=== PATIENT | female | born 1960 | race Caucasian/White ===

== ENCOUNTER 2017-12-10 10:51 | Emergency (ER) | payer BC ==
[2017-12-10 11:04] VITALS: BP 141/79
--- NOTE | 2017-12-10 12:27 | RAD ---
HISTORY: Inversion injury, pain at base of the fifth metatarsal COMPARISONS: None VIEWS: 3, Frontal, lateral, and oblique views of the left foot FINDINGS: BONE DENSITY: Normal. BONES: There is a nondisplaced fracture of the base of the fifth metatarsal with articular extension. 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 ALIGNMENT: There is no dislocation. SOFT TISSUES: Unremarkable. OTHER FINDINGS: None. IMPRESSION: NONDISPLACED FRACTURE OF THE BASE OF THE FIFTH METATARSAL
--- NOTE | 2017-12-10 14:07 | UC ---
Sabra Cui Emily, scribed for Aicha Hanson DO on 12/10/17 at 1157 . Lower Extremity/Ankle HPI - HPI Summary HPI Summary: This patient is a 57 year old F presenting to [facility] accompanied by sister with a chief complaint of L foot and ankle pain that began yesterday status post fall. Pt reports tripping and falling at 1200 yesterday. The patient rates the pain 7/10 in severity. Symptoms aggravated by movement. Symptoms alleviated by nothing. Patient denies fever, chills, nausea, vomiting, CP, and SOB. - History of Current Complaint Chief Complaint: UCLowerExtremity Stated Complaint: FOOT INJURY Time Seen by Provider: 12/10/17 11:20 Hx Obtained From: Patient Onset/Duration: Sudden Onset, Lasting Days, Still Present Severity Initially: Moderate Severity Currently: Moderate Pain Intensity: 7 Pain Scale Used: 0-10 Numeric Aggravating Factor(s): Other - Movement Alleviating Factor(s): Nothing Able to Bear Weight: Yes - Allergies/Home Medications Allergies/Adverse Reactions: Allergies Allergy/AdvReac Type Severity Reaction Status Date / Time No Known Allergies Allergy Verified 12/10/17 11:04 PMH/Surg Hx/FS Hx/Imm Hx Previously Healthy: Yes Endocrine History: Other Other Endocrine History: Negative diabetes Cardiovascular History: Other Other Cardiovascular History: Negative HTN - Surgical History Surgical History: None - Family History Known Family History: Positive: Hypertension, Other - Colon CA. Leukemia - Social History Occupation: Employed Full-time Lives: With Family Alcohol Use: Occasionally Substance Use Type: None Smoking Status (MU): Never Smoked Tobacco Review of Systems Constitutional: Other - Negative fever and chills Respiratory: Other - Negative SOB Cardiovascular: Other - Negative CP Gastrointestinal: Other - Negative nausea and vomiting Musculoskeletal: Other: - Positive L foot and ankle pain All Other Systems Reviewed And Are Negative: Yes Physical Exam - Summary Physical Exam Summary: Appearance: Well-Appearing, No Pain Distress, Well-Nourished Eyes: conjunctiva clear, no discharge ENT: Hearing grossly normal, no muffled/hoarse voice. Hearing grossly normal, normal voice. Neck: Normal, Supple Respiratory/Lung Sounds: Lungs clear, Normal breath sounds, No respiratory distress, No accessory muscle use Cardiovascular: RRR, No murmur Abdomen (if she checks): Nontender, Soft, no guarding, not distended Bowel Sounds (if she checks): Present Musculoskeletal: Bruising on the lateral aspect of the L foot. Tender of the midfoot including the base of the fifth metatarsal. Distal neurovascular intact. Neurological: Alert, muscle tone normal Psychiatric: Normal, age appropriate behavior Skin: Normal, Warm, Dry, Normal color Triage Information Reviewed: Yes Vital Signs: Initial Vital Signs Temp 98.1 F 12/10/17 11:01 Pulse 68 12/10/17 11:01 Resp 15 12/10/17 11:01 BP 141/79 12/10/17 11:01 Pulse Ox 98 12/10/17 11:01 Vital Signs Reviewed: Yes Diagnostics - Radiology Foot XR Radiology Interpretation Completed By: Radiologist - Foot XR reveals, per radiologist, nondisplaced fracture of the base of the fifth metatarsal. ED physician has reviewed this radiology report. Lower Extremity Course/Dx - Course Course Of Treatment: Patient will be discharged with follow up from PCP. The patient is agreeable with this plan. Medications reviewed. Allergies reviewed. High blood pressure noted, likely due to patient condition. - Differential Dx/Diagnosis Provider Diagnoses: Elevated BP without diagnosis of HTN. Fifth metatarsal fracture Discharge - Sign-Out/Discharge Documenting (check all that apply): Discharge/Admit/Transfer - Discharge Plan Condition: Stable Disposition: HOME Patient Education Materials: Crutch Instructions (ED), Foot Fracture in Adults (ED) Referrals: Bud Pickard MD [Primary Care Provider] - Ashwin Dillon MD [Medical Doctor] - (CALL TOMORROW TO ARRANGE FOLLOW UP.) Additional Instructions: You have fractured of the base of the 5th metatarsal. Sometimes these fractures can have a bad outcome if not properly immobilized. That means that you must wear the WALKING BOOT 24 hours a day until the ortho provider tells you otherwise. You should also remain NON-WEIGHT BEARING until told otherwise by the orthopedist, so walking and standing should be done with the help of crutches. - Billing Disposition and Condition Condition: STABLE Disposition: HOME The documentation as recorded by the Sabra mclean Emily accurately reflects the service I personally performed and the decisions made by me, Aicha Hanson DO.
== END 2017-12-10 12:49 | disposition home or self-care (01) ==
LOC: UCEAST 10:51
DX: S92.355A Nondisplaced fracture of fifth metatarsal bone, left foot, initial encounter for closed fracture (principal); W01.0XXA Fall on same level from slipping, tripping and stumbling without subsequent striking against object, initial encounter; Y93.9 Activity, unspecified; Y92.9 Unspecified place or not applicable; R03.0 Elevated blood-pressure reading, without diagnosis of hypertension
CPT/HCPCS: 99212; G0463